=== PATIENT | female | born 1950 | race Caucasian/White ===

== ENCOUNTER 2016-05-12 20:07 | Inpatient (IN) | payer OTHER ==
[~2016-05-12] VITALS: Ht 170.2 cm; Wt 111.7 kg
[2016-05-12] MEDS ORDERED: PROMETHAZINE HCL 25 MG/ML 1ML IV ONE (21:45)
[2016-05-12] MEDS ORDERED: SODIUM CHLORIDE 0.9% 1,000 ML IV ONE (21:45)
[2016-05-12 21:54] LABS: Basophils # (auto) 0 uL; Basophils % (auto) 0.2 % (0.0-2.0); Eosinophils # (auto) 0 uL; Hematocrit 43.9 % (36.0-46.0); Hemoglobin 14.4 g/dL (12.2-16.2); Lymphocytes # (auto) 1.1 uL; Lymphocytes % (auto) 10.1 % (10.0-50.0); Mean Corpuscular Hgb Conc. 32.7 g/dL (32.0-36.0); Mean Corpuscular Volume 85.5 fL (80.0-100.0); Mean Platelet Volume 9.6 fL (7.4-10.4); Monocytes # (auto) 0.2 uL; Monocytes % (auto) 2.2 % (0.0-12.0); Neutrophils # (auto) 9.3 uL; Neutrophils % (auto) 87.5 % (37.0-80.0); Platelet Count (auto) 202 10^3/uL (140-450); Red Cell Distribution Width 12.9 % (11.6-16.0); White Blood Cell 10.7 10^3/uL (4.4-10.8)
[2016-05-12] MEDS ORDERED: PANTOPRAZOLE SODIUM 40 MG/10 ML VIAL IV ONE (22:15)
[2016-05-12 22:19] LABS: BUN/Creatinine Ratio 21.7; Bilirubin, Total 0.8 mg/dL (0.2-1.0); Calcium 9.2 mg/dL (8.5-10.1); Potassium 3.1 mmol/L (3.5-5.1); Total Protein 7.3 g/dL (6.4-8.2)
[2016-05-13] MEDS ORDERED: IOHEXOL 300 MG/ML 100ML BOTTLE IJ ONE (00:53)
[2016-05-13 01:43] LABS: Urine Bilirubin Negative (Negative); Urine Blood Negative /uL (Negative); Urine Color Yellow (Yellow); Urine Glucose Normal (Normal); Urine Nitrite Negative (Negative); Urine RBC 5 /hpf (0 - 4); Urine Squamous Epithelial Cell FEW /hpf (<5); Urine Urobilinogen Normal (Negative); Urine pH 8.5 (5.0-8.0)
[2016-05-13 01:44] LABS: Urine Ketone 4+ (Negative)
[2016-05-13] MEDS ORDERED: POTASSIUM CHL 20 Meq TABLET PO ONE (02:00)
[2016-05-13] MEDS ORDERED: PROMETHAZINE HCL 25 MG/ML 1ML IV ONE (03:30)
[2016-05-13] MEDS ORDERED: POTASSIUM CHL 20MEQ/100ML 100 ML IV ONE (03:30)
[2016-05-13] MEDS ORDERED: PHENYLEPHRINE HCL 0.5 % NASAL SPRAY 15ML ONE ×2 (04:00)
[2016-05-13] MEDS ORDERED: SOD CHL 0.45% 1,000 ML IV ONE ×2 (04:45→08:15)
[2016-05-13] MEDS ORDERED: CIPROFLOXACIN 400MG/200ML 200 ML IV ONE (04:45)
[2016-05-13] MEDS ORDERED: metroNIDAZOLE 500MG/100ML 100 ML IV ONE (04:45)
[2016-05-13 05:07] LABS: Calcium 8.1 mg/dL (8.5-10.1); Potassium 3.2 mmol/L (3.5-5.1)
[2016-05-13] MEDS ORDERED: hydrALAZINE HCL 20 MG/ML VL IV PRN (08:30)
[2016-05-13 09:07] LABS: Basophils # (auto) 0.1 uL; Basophils % (auto) 0.4 % (0.0-2.0); Eosinophils # (auto) 0 uL; Hematocrit 40.5 % (36.0-46.0); Hemoglobin 13.4 g/dL (12.2-16.2); Lymphocytes # (auto) 1.5 uL; Lymphocytes % (auto) 10.7 % (10.0-50.0); Mean Corpuscular Hemoglobin 28.4 pg (28.0-32.0); Mean Corpuscular Hgb Conc. 33.1 g/dL (32.0-36.0); Mean Corpuscular Volume 85.6 fL (80.0-100.0); Mean Platelet Volume 9.8 fL (7.4-10.4); Monocytes # (auto) 0.8 uL; Monocytes % (auto) 5.4 % (0.0-12.0); Neutrophils # (auto) 12.1 uL; Neutrophils % (auto) 83.5 % (37.0-80.0); Platelet Count (auto) 197 10^3/uL (140-450); Red Cell Distribution Width 13.3 % (11.6-16.0); White Blood Cell 14.5 10^3/uL (4.4-10.8)
[2016-05-13 09:11] LABS: Albumin 3.6 g/dL (3.4-5.0); BUN/Creatinine Ratio 18.8; Calcium 8.1 mg/dL (8.5-10.1); Potassium 3.3 mmol/L (3.5-5.1)
[2016-05-13 09:14] LABS: Bilirubin, Total 0.7 mg/dL (0.2-1.0); Total Protein 6.8 g/dL (6.4-8.2)
[2016-05-13] MEDS: POTASSIUM CHL 20MEQ/100ML 100 ML IV SCH ×2 (09:15→10:15)
[2016-05-13] MEDS ORDERED: MORPHINE SULF INJ 2 MG/ML SYRINGE 1ML IV PRN (09:30)
[2016-05-13] MEDS ORDERED: NITROGLYCERIN 0.4 MG SL TAB SL PRN (09:30)
[2016-05-13] MEDS ORDERED: CIPR-173 PO (13:19)
[2016-05-13] MEDS ORDERED: METR500T PO (13:19)
[2016-05-13] MEDS ORDERED: ALUM & MAG HYDROX-SIMETH LIQ(MAALOX) 30 ML PO ONE (13:30)
[2016-05-13] MEDS: metroNIDAZOLE 500MG/100ML 100 ML IV SCH ×2 (15:16→21:50)
[2016-05-13] MEDS ORDERED: PNEUMOCOCCAL VACC POLYS 25 MCG/0.5 ML VIAL IM ONE (15:30)
[2016-05-13 17:00] VITALS: BP 142/76
[2016-05-13] MEDS: CIPROFLOXACIN 400MG/200ML 200 ML IV SCH (17:59)
[2016-05-13] MEDS ORDERED: PANTOPRAZOLE SODIUM 40 MG/10 ML VIAL IV ONE (18:30)
[2016-05-13] MEDS: ONDANSETRON HCL 4 MG/2 ML VIAL IV PRN (18:38)
[2016-05-13 21:08] VITALS: BP 152/73
[2016-05-13] MEDS: NYSTATIN-TRIAMCINOLONE TOPICAL CRE 15GM TOP SCH (22:02)
[2016-05-13 22:09] VITALS: BP 132/69
[2016-05-14] MEDS: ALPRAZolam 0.5 MG TAB PO SCH ×3 (00:45→14:42)
[2016-05-14] MEDS: ONDANSETRON HCL 4 MG/2 ML VIAL IV PRN (00:45)
[2016-05-14 04:52] VITALS: BP 135/66
[2016-05-14] MEDS: metroNIDAZOLE 500MG/100ML 100 ML IV SCH ×2 (05:42→14:42)
[2016-05-14] MEDS: CIPROFLOXACIN 400MG/200ML 200 ML IV SCH (05:42)
[2016-05-14 06:12] LABS: Basophils # (auto) 0 uL; Basophils % (auto) 0.1 % (0.0-2.0); Eosinophils # (auto) 0 uL; Eosinophils % (auto) 0.1 % (0.0-7.0); Hematocrit 39.2 % (36.0-46.0); Lymphocytes # (auto) 2.8 uL; Lymphocytes % (auto) 25.6 % (10.0-50.0); Mean Corpuscular Hemoglobin 28.6 pg (28.0-32.0); Mean Corpuscular Hgb Conc. 33.2 g/dL (32.0-36.0); Mean Corpuscular Volume 86.3 fL (80.0-100.0); Mean Platelet Volume 9.5 fL (7.4-10.4); Monocytes # (auto) 0.6 uL; Monocytes % (auto) 5.8 % (0.0-12.0); Neutrophils # (auto) 7.4 uL; Neutrophils % (auto) 68.4 % (37.0-80.0); Platelet Count (auto) 176 10^3/uL (140-450); White Blood Cell 10.9 10^3/uL (4.4-10.8)
[2016-05-14 06:42] LABS: Albumin 3.6 g/dL (3.4-5.0); BUN/Creatinine Ratio 23.3; Bilirubin, Total 0.9 mg/dL (0.2-1.0); Calcium 8.9 mg/dL (8.5-10.1); Potassium 3.2 mmol/L (3.5-5.1); Total Protein 6.5 g/dL (6.4-8.2)
[2016-05-14 08:30] VITALS: BP 148/79
[2016-05-14] MEDS ORDERED: PANTOPRAZOLE SODIUM 40 MG/10 ML VIAL IV SCH (10:00)
[2016-05-14] MEDS: NYSTATIN-TRIAMCINOLONE TOPICAL CRE 15GM TOP SCH (10:32)
[2016-05-14] MEDS ORDERED: CHOL200010 PO (10:55)
[2016-05-14] MEDS ORDERED: PRA25T PO (10:55)
[2016-05-14] MEDS ORDERED: MONT5CHW17 PO (10:55)
[2016-05-14] MEDS ORDERED: RANI300T3 PO (10:55)
[2016-05-14] MEDS ORDERED: LEVO25TA6 PO (10:55)
[2016-05-14] MEDS ORDERED: SIMV-8 PO (10:55)
[2016-05-14] MEDS ORDERED: BIOTCAP2 PO (10:55)
[2016-05-14] MEDS ORDERED: CHOL20009 PO (10:55)
[2016-05-14] MEDS ORDERED: POTASSIUM CHL 20 Meq TABLET PO ONE (11:15)
[2016-05-14 12:30] VITALS: BP 141/80
[2016-05-14 13:23] VITALS: BP 141/80
== END 2016-05-14 16:15 | disposition home or self-care (01) | DRG 392 ==
LOC: ER 20:07 → TELE 20:08 → TELE-CENTR 05-13 10:51
PROVIDERS: ADMIT Family Medicine; ATTEND Family Medicine
PROC: 3E0234Z Introduction of Serum, Toxoid and Vaccine into Muscle, Percutaneous Approach (ICD-10-PCS; principal; 2016-05-13)
DX: K52.9 Noninfective gastroenteritis and colitis, unspecified (principal); B34.9 Viral infection, unspecified; E87.6 Hypokalemia; E03.9 Hypothyroidism, unspecified; I51.7 Cardiomegaly; R73.9 Hyperglycemia, unspecified; K80.20 Calculus of gallbladder without cholecystitis without obstruction; Z82.3 Family history of stroke; Z82.49 Family history of ischemic heart disease and other diseases of the circulatory system; Z83.3 Family history of diabetes mellitus; Z80.9 Family history of malignant neoplasm, unspecified; Z90.710 Acquired absence of both cervix and uterus; Z98.890 Other specified postprocedural states; Z23 Encounter for immunization
CPT/HCPCS: 36415; 71010; 74177; 80048; 80053; 81001; 83036; 84484; 85025; 85379; 93005; 93306; 96361; 96374; 96375; C9113; J2405; J3480; J3490